=== PATIENT | male | born 1970 | race Caucasian/White ===

== ENCOUNTER 2025-07-14 16:46 | Emergency (ER) | payer OTHER ==
[2025-07-14] MEDS ORDERED: Lidocaine 1% PF 5 ML VIAL ONE (17:02)
[2025-07-14] MEDS ORDERED: Boostrix 0.5 ML (Tdap) VIAL (>/=7 yrs of age) ONE (17:02)
== END 2025-07-14 17:45 | disposition home or self-care (01) ==
LOC: BURERS 16:46
DX: S60.352A Superficial foreign body of left thumb, initial encounter (principal); F17.220 Nicotine dependence, chewing tobacco, uncomplicated; Z23 Encounter for immunization; W45.8XXA Other foreign body or object entering through skin, initial encounter
CPT/HCPCS: 90471; 90715